=== PATIENT | male | born 1985 | race Caucasian/White ===

== ENCOUNTER 2019-04-11 12:14 | Emergency (ER) | payer SELFPAY ==
[~2019-04-11] VITALS: Ht 180.3 cm; Wt 93.0 kg
[~2019-04-11 12:14] MED LIST: MUPI22OI2 TP; PROM25TA10 PO; SULF1TAB24 PO
[2019-04-11] MEDS ORDERED: IBUPROFEN 400 MG TABLET. PO ONE (12:45)
[2019-04-11] MEDS ORDERED: ACETAMINOPHEN 500 MG TABLET PO ONE (12:45)
--- NOTE | 2019-04-11 12:54 | PHYS DOC ---
Past Medical History Past Medical History: No Pertinent History Past Surgical History: Other Additional Past Surgical Histo: EYE SURG,SKIN GRAFT,SHOULDER Alcohol Use: Occasionally Drug Use: None Adult General Chief Complaint Chief Complaint: FLU SYMPTOM HPI HPI Patient is a 33 year old 33-year-old male patient who presents to the ED today with body aches, chills, subjective fevers and a cough that began 3 days ago. Review of Systems Review of Systems Constitutional: Reports subjective fevers and body aches Eyes: Denies change in visual acuity, redness, or eye pain [] HENT: Denies nasal congestion or sore throat [] Respiratory: Reports cough, denies shortness of breath [] Cardiovascular: No additional information not addressed in HPI [] GI: Denies abdominal pain, nausea, vomiting, bloody stools or diarrhea [] : Denies dysuria or hematuria [] Musculoskeletal: Denies back pain or joint pain [] Integument: Denies rash or skin lesions [] Neurologic: Denies headache, focal weakness or sensory changes [] All other systems were reviewed and found to be within normal limits, except as documented in this note. Current Medications Current Medications Current Medications Medications (Trade) Dose Ordered Sig/Jennifer Start Time Stop Time Status Last Admin Dose Admin Acetaminophen (Tylenol) 1,000 mg 1X ONCE 04/11/19 12:45 04/11/19 12:47 DC 04/11/19 12:45 1,000 MG Ibuprofen (Motrin) 800 mg 1X ONCE 04/11/19 12:45 04/11/19 12:47 DC 04/11/19 12:45 800 MG Allergies Allergies Allergies Coded Allergies Type Severity Reaction Last Updated Verified codeine Allergy Severe ANAPHYLAXIS,N/V 03/04/16 Yes Physical Exam Physical Exam Constitutional: Well developed, well nourished, no acute distress, non-toxic appearance. [] HENT: Normocephalic, atraumatic, bilateral external ears normal, oropharynx moist, no oral exudates, nose normal. [] Eyes: PERRLA, EOMI, conjunctiva normal, no discharge. [] Neck: Normal range of motion, no tenderness, supple, no stridor. [] Cardiovascular:Heart rate regular rhythm, no murmur [] Lungs & Thorax: Bilateral breath sounds clear to auscultation [] Abdomen: Bowel sounds normal, soft, no tenderness, no masses, no pulsatile masses. [] Skin: Warm, dry, no erythema, no rash. [] Back: No tenderness, no CVA tenderness. [] Extremities: No tenderness, no cyanosis, no clubbing, ROM intact, no edema. [] Neurologic: Alert and oriented X 3, normal motor function, normal sensory function, no focal deficits noted. [] Psychologic: Affect normal, judgement normal, mood normal. [] Current Patient Data Lab Values Laboratory Tests Test 04/11/19 12:37 Influenza Type A Antigen Negative (NEGATIVE) Influenza Type B Antigen Negative (NEGATIVE) EKG EKG [] Radiology/Procedures Radiology/Procedures []PROCEDURE: CHEST PA & LATERAL EXAM: Chest, 2 views. HISTORY: Fever. Cough. COMPARISON: None. FINDINGS: 2 views of the chest are obtained. There is no infiltrate, pleural effusion or pneumothorax. The heart is normal in size. IMPRESSION: No acute pulmonary finding. Electronically signed by: Katya Valverde MD (04/11/2019 1:35 PM) [facility] [place] DICTATED and SIGNED BY: KATYA AVLVERDE MD DATE: 04/11/19 6393 Course & Med Decision Making Course & Med Decision Making Pertinent Labs and Imaging studies reviewed. (See chart for details) This is a 33-year-old male patient presented to the ED today with complaints of body aches, chills, subjective fevers and a cough that began 3 days ago. Patient arrives in the ED with a temperature of 103.1. Negative influenza A or B, chest x-ray is negative. Patient was discharged to home. Instructed to push fluids, Tylenol every 4 hours and Motrin every 6 hours. Follow-up with primary care doctor in the course of next week. Dragon Disclaimer Dragon Disclaimer This electronic medical record was generated, in whole or in part, using a voice recognition dictation system. Departure Departure Impression: Primary Impression: Fever Additional Impressions: Cough Viral illness Disposition: 01 HOME, SELF-CARE Condition: STABLE Referrals: NO PCP (PCP) follow up with your doctor in 1-2 weeks Patient Instructions: Cough, Adult, [id number], Fever, Adult Additional Instructions: You were evaluated in the emergency room for symptoms suspicious of a viral illness. Your chest x-ray was negative for any acute findings. Your influenza test was negative. We highly encourage you to push fluids, maintain good hand hygiene, take Tylenol/Motrin for pain or fever. Follow-up with your own doctor in 1-2 weeks. Problem Qualifiers Primary Impression: Fever Fever type: unspecified Qualified Codes: R50.9 - Fever, unspecified TONYBULMAROLOUIE APRN Apr 11, 2019 12:54
[2019-04-11 13:05] VITALS: BP 162/88
[2019-04-11 13:20] LABS: INFLUENZA A PATIENT NEGATIVE (NEGATIVE); INFLUENZA B PATIENT NEGATIVE (NEGATIVE)
--- NOTE | 2019-04-11 13:38 | RAD ---
EXAM: Chest, 2 views. HISTORY: Fever. Cough. COMPARISON: None. FINDINGS: 2 views of the chest are obtained. There is no infiltrate, pleural effusion or pneumothorax. The heart is normal in size. IMPRESSION: No acute pulmonary finding. Electronically signed by: Anna Valverde MD (04/11/2019 1:35 PM) [facility] [place]
== END 2019-04-11 14:24 | disposition home or self-care (01) ==
LOC: ER 12:14
DX: R50.9 Fever, unspecified (principal); B34.9 Viral infection, unspecified; R05 Cough; Z98.890 Other specified postprocedural states; Z88.5 Allergy status to narcotic agent
CPT/HCPCS: 71046; 87804; 99285